=== PATIENT | male | born 1960 | race Caucasian/White ===

== ENCOUNTER 2022-11-24 08:53 | Day surgery (SDC) | payer MEDICARE ==
[2022-11-22 10:37] VITALS: BMI 33.9
[~2022-11-24 08:53] MED LIST: MOXIFLOXACIN HCL 0.5% DROPS 3 ML BTL OP PRN; TETRACAINE 0.5% OPHTH (PF) DROPS 4 ML BTL OP PRN; TIMOLOL 0.5% OPHTH DROPS 5 ML BTL OP PRN
[2022-11-24] MEDS ORDERED: LACTATED RINGERS 1,000 ML IV SCH (10:47)
[2022-11-24] MEDS ORDERED: ONDANSETRON 4 MG/2 ML VIAL IVP PRN (10:47)
[2022-11-24] MEDS ORDERED: LIDOCAINE 1% (10MG/ML) FOR IV START INTRADERMA PRN (10:47)
[2022-11-24 10:56] VITALS: TEMP 98.1
[2022-11-24] MEDS: CYCLOPENTOLATE 1% OPHTH SOLN 2 ML BTL OP PRN ×3 (11:00→11:12)
[2022-11-24] MEDS: PHENYLEPHRINE 2.5% OPHTH DRP 2ML OP PRN ×3 (11:03→11:15)
[2022-11-24] MEDS ORDERED: LACTATED RINGERS 1,000 ML IV ONE (11:11)
[2022-11-24] MEDS ORDERED: MIDAZOLAM 2 MG/2 ML VIAL ONE (11:48)
[2022-11-24] MEDS ORDERED: EPINEPHrine (PF) 0.3 ML in BALANCED SALT IRRIG SOLN COMB2 500 ML IRRIGATION ONE (12:08)
[2022-11-24] MEDS ORDERED: HYALURONATE SODIUM INTRAOCULAR 1 EACH SYRINGE (12MG/ML) INTRAOCULA ONE (12:10)
[2022-11-24] MEDS ORDERED: BALANCED SALT IRRIG SOLN COMB2 15 ML IRRIG.SOLN INTRAOCULA ONE (12:12)
[2022-11-24] MEDS ORDERED: LIDOCAINE 1% PF 10 MG/ML (5 ML AMP) SQ ONE (12:12)
[2022-11-24] MEDS ORDERED: ATROPINE OPHTH SOLN 1% 5ML BTL RIGHT EYE ONE (12:33)
--- NOTE | 2022-11-24 12:36 | P.OP ---
Date of Procedure: 11/24/22 Preoperative Diagnosis: NS & CS & PSC Postoperative Diagnosis: same Procedure(s) Performed: PIOL, OD Implants: [id number] 20.00 Anesthesia: MAC Surgeon: Rogers Sahu Pathology: none sent Condition: stable Disposition: same day Indications for Procedure: blurry vision Operative Findings: no complications
[2022-11-24 12:44] VITALS: RESP 16
[2022-11-24 13:09] VITALS: BP 118/75; PULSE 54
--- NOTE | 2022-11-24 20:34 | OP ---
OPERATIVE REPORT PROCEDURE PERFORMED: Phacoemulsification of cataract and intraocular lens implant of the right eye. PREOPERATIVE DIAGNOSES: Nuclear sclerosis, cortical sclerosis, posterior subcapsular cataract, and regular astigmatism. POSTOPERATIVE DIAGNOSES: Nuclear sclerosis, cortical sclerosis, posterior subcapsular cataract, and regular astigmatism. ANESTHESIA: Topical. ESTIMATED BLOOD LOSS: None. SPECIMEN TAKEN: None. NARRATIVE: After obtaining the appropriate consent, the patient was brought to the operating room. There, he was asked to sit upright and the axes 0 and 180 degrees were identified and marked with a gentian dayton marker. He was then placed in the proper supine position under cardiac monitoring and prepped and draped in the usual sterile manner. He was approached from his right temporal side. Using previously acquired corneal topography information, the axis of 56 degrees was identified and marked with the [employer] [place] axis marker. Additionally, the center of the cornea was marked with a 5.5 mm Triston ring at the 11 o'clock position and MVR blade was used to create a paracentesis port. Through this opening, 1% Xylocaine MPF 50:50 mix with balanced salt solution was injected into the anterior chamber. This was followed by stabilization of the anterior chamber with Amvisc. At the 9 o'clock position, a 2.75 mm kristi keratome was used to create a self- sealing corneal flap incision in a Langerman's fashion. Through this opening, a cystotome was introduced to begin a continuous tear capsulorrhexis, which was then completed using the Utrata forceps. Hydrodissection and hydrodelineation of the lens were accomplished with balanced salt solution. Phacoemulsification of the lens utilizing phaco chop was accomplished at 12.23 seconds at 14% power. Additional Xylocaine MPF was instilled into the anterior chamber. This was followed by removal of the remaining cortical material as well as careful polishing of the posterior capsule in the capsule vacuum mode. Amvisc was then used to stabilize the capsular bag and using both Nivia and Gabrielle capsule polishing instruments, the equator as well as the underside of the anterior capsule leaflet was scrubbed for any remaining viable lens tissue. Once this was completed, additional Amvisc was used to further deepen the anterior chamber. The temporal incision was enlarged slightly with a keratome, and a [employer]ch [employer] Trulign model BL1UT 1.25 x 20 diopter posterior chamber intraocular lens was then inserted into the capsular bag without difficulty. The lens was rotated at least 270 degrees with the Sinskey hook. This was followed by removal of all remaining viscoelastic in and around the lens and against the posterior capsule with irrigation and aspiration instrument. The final alignment of the lens was accomplished in the 56 degree orientation with the tip of the IA instrument. The lens was tamponaded against the posterior capsule to ensure reduced mobility. The irrigation aspiration instrument was carefully withdrawn from the anterior chamber and the wounds were hydrated with balanced salt solution. Additionally, balanced salt solution was used to deepen the anterior chamber and maintain the proper orientation of the implant. Both paracentesis as well as temporal incisions were dried with Weck-Felicita sponges. This was followed by application of Tisseel to ensure watertight integrity. Once this had cured, he then received 2 drops of 0.5% timolol followed by 2 drops of moxifloxacin and 2 drops of 1% atropine and then was lightly patched and shielded in the usual manner. There were no complications from the procedure. He tolerated the procedure well and was returned to outpatient recovery in good condition. ELEAZAR / IJN: [id number] / ZULEMA
== END 2022-11-24 13:34 | disposition home or self-care (01) ==
LOC: OR 08:53
PROVIDERS: ATTEND Ophthalmology
DX: H25.811 Combined forms of age-related cataract, right eye (principal); H52.221 Regular astigmatism, right eye; I10 Essential (primary) hypertension; E78.00 Pure hypercholesterolemia, unspecified; K21.9 Gastro-esophageal reflux disease without esophagitis; J45.909 Unspecified asthma, uncomplicated; J43.9 Emphysema, unspecified; H25.042 Posterior subcapsular polar age-related cataract, left eye; H40.003 Preglaucoma, unspecified, bilateral; H21.233 Degeneration of iris (pigmentary), bilateral; H47.093 Other disorders of optic nerve, not elsewhere classified, bilateral; I25.10 Atherosclerotic heart disease of native coronary artery without angina pectoris; E78.5 Hyperlipidemia, unspecified; Z79.891 Long term (current) use of opiate analgesic; Z79.1 Long term (current) use of non-steroidal anti-inflammatories (NSAID)
CPT/HCPCS: 66984; V2632; J2250; J0171 ×2; J2405; J2001